=== PATIENT | male | born 1955 | race Caucasian/White ===

== ENCOUNTER 2021-07-02 13:56 | Day surgery (SDC) | payer OTHER ==
[~2021-07-02] VITALS: Ht 170.2 cm; Wt 63.2 kg
[2021-07-02] MEDS ORDERED: ALBU90OI (14:29)
== END 2021-07-02 16:34 | disposition home or self-care (01) ==
LOC: ORSCSDS 13:56
PROVIDERS: Internal Medicine Gastroenterology
PROC: 0D5H8ZZ Destruction of Cecum, Via Natural or Artificial Opening Endoscopic (ICD-10-PCS; principal; 2021-07-02 15:15)
PROC: 0DBL8ZX Excision of Transverse Colon, Via Natural or Artificial Opening Endoscopic, Diagnostic (ICD-10-PCS; principal; 2021-07-02 15:15)
PROC: 0DBK8ZX Excision of Ascending Colon, Via Natural or Artificial Opening Endoscopic, Diagnostic (ICD-10-PCS; principal; 2021-07-02 15:15)
DX: K62.5 Hemorrhage of anus and rectum (principal); Z86.010 Personal history of colon polyps; D12.3 Benign neoplasm of transverse colon; D12.2 Benign neoplasm of ascending colon; J44.9 Chronic obstructive pulmonary disease, unspecified; K64.8 Other hemorrhoids; I99.8 Other disorder of circulatory system; F17.210 Nicotine dependence, cigarettes, uncomplicated; Z79.899 Other long term (current) drug therapy
CPT/HCPCS: 88305; J0461; J2405; J2704; J7120

== ENCOUNTER 2024-05-19 10:42 | Day surgery (SDC) | payer OTHER ==
[~2024-05-19] VITALS: Ht 167.6 cm; Wt 61.7 kg
[2024-05-19] VITALS (38 sets, daily range): BP systolic 108–186; BP diastolic 62–105
[~2024-05-19 10:42] MED LIST: ALBU90OI; Lactated Ringer's 1,000 ML IV SCH
--- NOTE | 2024-05-19 11:30 | NUR ---
Ambulatory in Day Surgery RECENLTY IND, DAUGHTER WITH PT. History, Chart, Medications and Allergies reviewed before start of procedure.Lungs DIMINISHED T/O to Auscultation. PT REPORTS HAVING COFFEE WITH CREAMER OTHERWISE NPO, DR NOTIFIED REPORTS WILL PROCEED. Patient States Post-Procedure ride home has been arranged.
[2024-05-19] MEDS ORDERED: TAMS.4ER PO (11:37)
[2024-05-19] MEDS ORDERED: CELE200 PO (11:39)
[2024-05-19] MEDS ORDERED: BREZTRI AEROS10.7 GM (11:40)
[2024-05-19] MEDS ORDERED: Lidocaine 2% Jelly Uro-Jet ONE (11:54)
[2024-05-19] MEDS ORDERED: Lidocaine 2% 5 ML SDV ONE ×2 (11:55→12:39)
[2024-05-19] MEDS ORDERED: propofoL 40 ML IV ONE (11:55)
[2024-05-19] MEDS ORDERED: Midazolam HCL 1 MG/ML 5MLVIAL ONE (11:55)
[2024-05-19] MEDS ORDERED: FentaNYL Citrate 50 MCG/ML 2 ML Injection ONE (11:55)
[2024-05-19 11:57] LABS: BASOPHILS ABSOLUTE AUTO 0.04 K/mm3 (0.00-0.23); BASOPHILS PERCENT AUTO 1 % (0-2); EOSINOPHILS ABSOLUTE AUTO 0.09 K/mm3 (0.00-0.68); EOSINOPHILS PERCENT AUTO 2 % (0-6); Hematocrit 39.7 % (37.0-53.0); Hemoglobin 13.8 g/dL (13.5-17.5); IMMATURE GRAN ABSOLUTE AUTO 0.02 K/mm3 (0.00-0.10); IMMATURE GRAN PERCENT AUTO 0 % (0-1); LYMPHOCYTES ABSOLUTE AUTO 1.07 K/mm3 (0.84-5.20); LYMPHOCYTES PERCENT AUTO 19 % (21-46); MONOCYTES ABSOLUTE AUTO 0.54 K/mm3 (0.16-1.47); MONOCYTES PERCENT AUTO 9 % (4-13); Mean Corpuscular HGB 31.2 pg (26.0-34.0); Mean Corpuscular HGB Conc 34.8 g/dL (31.5-36.5); Mean Corpuscular Volume 90 fL (80-100); Mean Platelet Volume 9.5 fL (9.1-12.4); NEUTROPHILS PERCENT AUTO 69 % (41-73); Platelet Count 233 K/mm3 (150-400); RDW Coefficient Variation 14.2 % (11.7-14.2); RDW Standard Deviation 46.8 fL (35.1-46.3); Red Blood Cell Count 4.43 M/mm3 (4.30-5.90); White Blood Cell Count 5.76 K/mm3 (4.00-11.30)
[2024-05-19] MEDS ORDERED: EpiNEPhrine 1 MG/1 ML 1ML Vial ONE (12:02)
[2024-05-19 12:08] LABS: International Normalized Ratio 0.94; Prothrombin Time Results 10.1 Sec (9.7-11.5)
--- NOTE | 2024-05-19 12:36 | NUR ---
05/19/24 1236 Gina Mayo CONFIRMED AND REVIEWED H&P, MEDCICATIONS, ALLERGIES, MEDICAL HISTORY, RESPIRATORY HISTORY, VITAL SIGNS, 3-LEAD EKG, CONSENTS, AND PHYSICIAN ORDERS. PATIENT CONFIRMS NPO STATUS AND AGREES WITH SCHEDULED PROCEDURE. MONITOR INTACT WITH CONTINUOUS PULSE OXIMETRY, CAPNOGRAPHY, 3-LEAD EKG, INTERMITTENT BP. SUPPLEMENTAL O2 TO BE TITRATED THROUGHOUT PROCEDURE TO MAINTAIN O2 SATURATION ABOVE 90%. PATIENT DETERMINED TO BE ASA APPROPRIATE FOR PROPOFOL SEDATION PRIOR TO START OF PROCEDURE BY DR. RENDON.
[2024-05-19] MEDS ORDERED: Lactated Ringer's 1,000 ML IV ONE (13:04)
[2024-05-19] MEDS ORDERED: Ipratropium/Albuterol SulF 2.5-0.5MG/3 ML Amp ONE (13:27)
--- NOTE | 2024-05-19 13:30 | NUR ---
DUO NEB GIVEN PER DR RENDON. PATIENT STATING SOB.
[2024-05-19] MEDS ORDERED: Ipratropium/Albuterol SulF 2.5-0.5MG/3 ML Amp INH ONE (13:35)
--- NOTE | 2024-05-19 13:55 | NUR ---
Into step. Pt [id number]. Pt reports mild dyspnea. Pt states that he feels that he is breathing better than he was when he first woke up. Crepitus palpated to right, lower chest wall. CXR done post procedure. Sats 91-94% on 4 liters nasal canula. Pt encourage to notify Rn if increased wob/sob. Pt agrees. Will repeat cxr in [address] Lacy to review cxr and the possibly discharge if no pneumothorax seen.
--- NOTE | 2024-05-19 14:50 | NUR ---
PT REQUESTED TO GET OOB TO [facility]. SAT 96% ON 4 LITERS-RZ SAT 94%. PT ABULATED TO [facility] WITH MINIMAL ASSIST. ON RETURN, PT NOT TACHYPNEIC RR 30'S AND SAT 85% ON RA. PT PLACE ON 4 LITERS NASAL CANULA. PT HAS HIS ALBUTEROL INHALER WITH HIM AND UTILIZED ON PUFF. AFTER SEVERAL MINUTES, RR 22-26, SATS 99% ON 4 LITERS NASAL CANULA. O2 TITRATED DOWN TO 2 LITERS.
--- NOTE | 2024-05-19 15:30 | NUR ---
SATS 95% ON RA. PT DENIES SOB. DR. RENDON AT BEDSIDE TO DISCUSS 2ND CXR RESULTS AND PLAN OF CARE. REVIEWED DISCHARGE INSTRUCTIONS WITH PT AND FAMILY. DR. RENDON OFFERED TO MAKE ARRANGEMENTS FOR HOME O2. HOWEVER, PT DECLINES AT THIS TIME. PT TO NOTIFY DR. RENDON IF SOB AT REST OR INCREASED SOB WITH EXERTION. PT XRAY CD SENT HOME WITH DISCHARGE INSTRUCTIONS. DISCHARGED TO HOME-OUT VIA WHEELCHAIR WITH CD, BELONGINGS, AND DISCHARGE INSRUCTIONS ON HAND.
== END 2024-05-19 15:30 | disposition home or self-care (01) ==
LOC: ORSCMMR 10:42 → ORD 12:00 → ORSCMMR 12:00
PROVIDERS: Student in an Organized Health Care Education/Training Program
PROC: 0BD48ZX Extraction of Right Upper Lobe Bronchus, Via Natural or Artificial Opening Endoscopic, Diagnostic (ICD-10-PCS; principal; 2024-05-19 12:00)
PROC: 0B9C8ZX Drainage of Right Upper Lung Lobe, Via Natural or Artificial Opening Endoscopic, Diagnostic (ICD-10-PCS; principal; 2024-05-19 12:00)
DX: D38.1 Neoplasm of uncertain behavior of trachea, bronchus and lung (principal); J44.9 Chronic obstructive pulmonary disease, unspecified; F17.210 Nicotine dependence, cigarettes, uncomplicated; Z79.899 Other long term (current) drug therapy
CPT/HCPCS: 71045; 85025; 85610; 85730; 87070; 87077; 87116; 87186; 87205; 88104; 88108; 88305; J0171; J2250; J2704; J3010; J7120